=== PATIENT | male | born 1990 | race Caucasian/White ===

== ENCOUNTER 2018-07-22 22:16 | Emergency (ER) | payer MEDICARE, MEDICAID ==
[~2018-07-22] VITALS: Ht 182.9 cm; Wt 81.6 kg
[2018-07-22] MEDS ORDERED: phenobarbital inj 260 MG in normal saline 100ml IV soln 99 ML IV STA (22:26)
[2018-07-22] MEDS ORDERED: magnesium oxide 400mg tablet PO ONE (22:30)
[2018-07-22] MEDS ORDERED: thiamine 100mg tablet PO ONE (22:30)
[2018-07-22] MEDS ORDERED: ondansetron/PF 4mg/2ml inj IV ONE (22:30)
[2018-07-22] MEDS ORDERED: normal saline 1000ML IV soln IVB ONE (22:30)
[2018-07-22] MEDS ORDERED: TETanus/Pertussis (Acell)/Diphther VAC/PF (Tdap-Adult) 0.5ml syringe IM ONE (22:30)
[2018-07-22] MEDS ORDERED: LIDOcaine 1.5% w/epinephrine 1:200,000 5ml ampul IJ ONE (22:30)
[2018-07-22 22:50] LABS: BASOPHILS # (AUTO) 0.2 X10'3 (0-0.2); EOSINOPHILS # (AUTO) 0.2 X10'3 (0-0.9); EOSINOPHILS % (AUTO) 1.6 % (0-6); HEMATOCRIT 33.4 % (42.0-52.0); LYMPHOCYTES # (AUTO) 3.3 X10'3 (1.1-4.8); MEAN CORPUSCULAR HGB CONC 29.9 % (33.0-36.5); MEAN CORPUSCULAR VOLUME 66.9 FL (78-98); MEAN PLATELET VOLUME 8.9 FL (7.4-10.4); MONOCYTES # (AUTO) 0.8 X10'3 (0-0.9); MONOCYTES % (AUTO) 8.2 % (2-12); NEUTROPHILS % (AUTO) 53.2 % (42-75); PLATELET COUNT 627 X10'3 (140-440); RED CELL DISTRIBUTION WIDTH 19.9 % (11.5-14.5); WHITE BLOOD COUNT 9.4 X10'3 (4.5-11.0)
[2018-07-22 23:03] LABS: ALANINE AMINOTRANSFERASE 58 U/L (12-78); ALBUMIN 3.9 G/DL (3.4-5.0); ALKALINE PHOSPHATASE 91 IU/L (46-116); ANION GAP 15 (8-16); ASPARTATE AMINO TRANSFERASE 32 U/L (10-37); BILIRUBIN,TOTAL 0.4 MG/DL (0.1-1.0); BLOOD UREA NITROGEN 12 MG/DL (7-18); BUN/CREATININE RATIO 9.5 (5.4-32.0); CALCIUM 8.7 MG/DL (8.5-10.1); CHLORIDE 101 MMOL/L (99-107); CREATININE 1.26 MG/DL (0.60-1.10); ETHANOL 0.166 GM/DL (0.0-0.010); GLUCOSE 138 MG/DL (70-104); POTASSIUM 3.6 MMOL/L (3.5-5.1); SODIUM 138 MMOL/L (135-145); TOTAL CARBON DIOXIDE 21.8 MMOL/L (24-32); eGFR 68 ML/MIN
[2018-07-22] MEDS ORDERED: bacitracin 15gm ointment TP ONE (23:10)
[2018-07-22 23:27] LABS: PLATELET ESTIMATE INCREASED
[2018-07-22 23:28] LABS: ANISOCYTOSIS 2+; GIANT PLATELET FEW; HYPOCHROMASIA 2+; MICROCYTOSIS 2+; POLYCHROMASIA FEW
[2018-07-22 23:29] LABS: LARGE PLATELETS FEW
[2018-07-22] MEDS ORDERED: CEPH-572 PO (23:33)
[2018-07-22 23:57] LABS: CKMB RELATIVE INDEX 0.8 RATIO (0-2.5); CREATINE KINASE 210 U/L (39-308)
[2018-07-23 00:17] VITALS: BP 127/58
== END 2018-07-23 00:18 | disposition home or self-care (01) ==
LOC: ER 22:17
DX: S51.812A Laceration without foreign body of left forearm, initial encounter (principal); F12.10 Cannabis abuse, uncomplicated; F15.10 Other stimulant abuse, uncomplicated; F10.129 Alcohol abuse with intoxication, unspecified; Z79.2 Long term (current) use of antibiotics; Y08.89XA Assault by other specified means, initial encounter; Y93.89 Activity, other specified; Y92.89 Other specified places as the place of occurrence of the external cause; Y99.8 Other external cause status; Y90.0 Blood alcohol level of less than 20 mg/100 ml
CPT/HCPCS: 12001; 36415; 80053; 80320; 82550; 82553; 83735; 85025; 90471; 90715; 96365; 96375; 99285; A6449; J2405; J2560; J3490; J7030